=== PATIENT | female | born 1940 | race Caucasian/White ===

== ENCOUNTER → 2020-04-01 | Outpatient (CLI) | payer MEDICARE ==
[2016-06-07 10:30] VITALS: BP 149/72
[~2020-04-01] MED LIST: ACET325T9 PO; ALBU2.5V8 INH; AMIO200T PO; AMIO200T4 PO; ASPI-886 PO; ATOR10TA60 PO; BENZ200C47 PO; BUSP15TA PO; CEPH-264 PO; CIPR500T94 PO; DILT180C64 PO; DOXY100C2 PO; ETOD400T PO; FAMO20TA5 PO; HYDR-2761 PO; HYDR-3164 PO; IOHEXOL 240 MG/ML 50ML VIAL. PO ONE; IOHEXOL 300 MG/ML 100ML VIAL. IV ONE; LABE200T4 PO; LORA10TA3 PO; LORA10TA68 PO; LOSA100T2 PO; LOSA25TA54 PO; METO-239 PO; METO-269 PO; MULT-208 PO; MULT-445 PO; PHEN-444 PO; SIMV10TA15 PO; SIMV20TA18 PO
[2020-04-01 09:21] LABS: BASO # 0.1 x10^3/uL (0.0-0.2); BASO % 1 % (0-3); EOS # 0.3 x10^3/uL (0.0-0.7); EOS % 4 % (0-3); HEMATOCRIT 43.9 % (36.0-47.0); HEMOGLOBIN 14.5 g/dL (12.0-15.5); LYMPH % 27 % (24-48); MEAN CORPUSCULAR HEMOGLOBIN 27 pg (25-35); MEAN CORPUSCULAR HGB CONC 33 g/dL (31-37); MEAN CORPUSCULAR VOLUME 83 fL (79-100); MONO # 0.5 x10^3/uL (0.0-1.1); MONO % 7 % (0-9); NEUT # 4.7 x10^3/uL (1.8-7.7); NEUT % 62 % (31-73); PLATELET COUNT 222 x10^3/uL (140-400); RED CELL DISTRIBUTION WIDTH 14.9 % (11.5-14.5); WHITE BLOOD COUNT 7.5 x10^3/uL (4.0-11.0)
[2020-04-01 09:35] LABS: ALBUMIN 3.8 g/dL (3.4-5.0); ALBUMIN/GLOBULIN RATIO 1.2 (1.0-1.7); CALCIUM 8.6 mg/dL (8.5-10.1); CREATININE 1.2 mg/dL (0.6-1.0); GFR 43.1; POTASSIUM 4.1 mmol/L (3.5-5.1); TOTAL BILIRUBIN 0.7 mg/dL (0.2-1.0)
--- NOTE | 2020-04-01 13:58 | RAD ---
EXAM: CT Chest, Abdomen, and Pelvis with IV contrast INDICATION: Reason: RENAL CA / Spl. Instructions: INJ 60ML OMNI 300 30 ML OMNI 240 PO / History: TECHNIQUE: Multi-detector row CT images were acquired from the thoracic inlet through the ischial tuberosities with the use of IV contrast. Sagittal and coronal images were acquired from the transaxial data. All CT scans performed at this facility utilize dose optimization techniques as appropriate to the exam, including the following: Automated exposure control and adjustment of the mA and/or KV according to patient size (this includes techniques or standardized protocols for targeted exams where dose is indication/reason for exam). IV CONTRAST: Administered ORAL CONTRAST: Administered COMPARISON: Abdomen pelvis CT without IV contrast 05/11/2016. FINDINGS: CHEST: CARDIOVASCULAR: Unremarkable MEDIASTINUM & CASSIDY: No adenopathy or masses. LUNGS: No pulmonary infiltrate, nodule, or other focal abnormality. PLEURAL SPACE: No pleural effusions or pneumothorax. OSSEOUS & SOFT TISSUE: Unremarkable ABDOMEN/PELVIS: LIVER: Scattered hepatic cysts, similar to prior. BILIARY SYSTEM: Gallbladder contains multiple gallstones. Bile ducts are not dilated. PANCREAS: Unremarkable SPLEEN: Unremarkable ADRENALS: Stable nodular fullness of left adrenal gland measuring 1.4 cm, compatible with benign adenomatous change. 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 There are 2 small inferior pole renal cortical cysts measuring 1.3 and 1.6 cm that are better depicted postcontrast but likely unchanged in the interval. These require no specific imaging follow-up based on their appearance alone. Right kidney shows cortical scarring compatible with posttreatment changes from previous right renal malignancy resection. No developing soft tissue mass. No abnormal enhancement to the renal parenchyma suspicious for local recurrence. BLADDER: Unremarkable REPRODUCTIVE ORGANS: Hysterectomy. The right ovary is not well seen and may be surgically absent. The left ovary is unremarkable on CT. GASTROINTESTINAL: The stomach, small bowel, and colon are unremarkable. The appendix is normal. MESENTERY/PERITONEUM/RETROPERITONEUM: Unremarkable VASCULAR: Unremarkable LYMPH NODES: No adenopathy OSSEOUS & SOFT TISSUES: Lumbar spinal degenerative spondylosis with facet hypertrophy and grade 1 anterolisthesis of L4 on L5. No acute or aggressive osseous lesions. IMPRESSION: Postoperative changes in the right kidney with no evidence of local tumor recurrence or metastatic disease. Electronically signed by: Norma Patten MD (04/01/2020 1:55 PM) [id number]
== END | disposition home or self-care (01) ==
LOC: CT 08:52
PROVIDERS: ATTEND Internal Medicine Hematology & Oncology
DX: C64.1 Malignant neoplasm of right kidney, except renal pelvis (principal); N21.0 Calculus in bladder; M46.96 Unspecified inflammatory spondylopathy, lumbar region; E27.49 Other adrenocortical insufficiency; M47.816 Spondylosis without myelopathy or radiculopathy, lumbar region; M43.16 Spondylolisthesis, lumbar region; Z90.710 Acquired absence of both cervix and uterus
CPT/HCPCS: 36415; 71260; 74177; 80053; 85025; Q9966; Q9967

== ENCOUNTER → 2021-03-18 | Outpatient (CLI) | payer MEDICARE ==
[2016-06-07 10:30] VITALS: BP 149/72
[~2021-03-18] MED LIST changes: -AMIO200T4 PO; +AMIO200T6 PO; +CONTRAST GIVEN. MC PRN; -ETOD400T PO; +ETOD400T3 PO
[2021-03-18 11:15] LABS: BASO # 0.1 x10^3/uL (0.0-0.2); BASO % 1 % (0-3); EOS # 0.4 x10^3/uL (0.0-0.7); EOS % 4 % (0-3); HEMATOCRIT 42.7 % (36.0-47.0); HEMOGLOBIN 14.1 g/dL (12.0-15.5); LYMPH # 2.3 x10^3/uL (1.0-4.8); LYMPH % 28 % (24-48); MEAN CORPUSCULAR HEMOGLOBIN 27 pg (25-35); MEAN CORPUSCULAR HGB CONC 33 g/dL (31-37); MEAN CORPUSCULAR VOLUME 82 fL (79-100); MONO # 0.5 x10^3/uL (0.0-1.1); MONO % 6 % (0-9); NEUT # 5.1 x10^3/uL (1.8-7.7); NEUT % 61 % (31-73); PLATELET COUNT 229 x10^3/uL (140-400); RED BLOOD COUNT 5.17 x10^6/uL (3.50-5.40); WHITE BLOOD COUNT 8.3 x10^3/uL (4.0-11.0)
[2021-03-18 11:21] LABS: ALBUMIN 3.7 g/dL (3.4-5.0); ALBUMIN/GLOBULIN RATIO 1.2 (1.0-1.7); CALCIUM 8.9 mg/dL (8.5-10.1); GFR 53.1; TOTAL BILIRUBIN 0.7 mg/dL (0.2-1.0); TOTAL PROTEIN 6.8 g/dL (6.4-8.2)
--- NOTE | 2021-03-18 18:19 | RAD ---
EXAM: CT CHEST, ABDOMEN, AND PELVIS WITH CONTRAST INDICATION: Renal cell carcinoma COMPARISON: CT chest abdomen pelvis 04/01/2020 TECHNIQUE: Helical CT imaging performed of the chest, abdomen and pelvis after administration of 60 m L Omnipaque 300 contrast. Sagittal and coronal reformats were obtained. One or more of the following individualized dose reduction techniques were utilized for this examinat ion: 1. Automated exposure control 2. Adjustment of the mA and/or kV according to patient size 3. Use of iterative reconstruction technique. FINDINGS: CHEST: Thyroid gland and thoracic inlet: Normal. Heart and great vessels: Heart is normal in size. There are coronary artery calcifications. Thoracic aorta is normal in caliber. Mediastinum and ingrid: No mediastinal or hilar lymphadenopathy. Lungs and pleura: There is a 2 mm nodule along the minor fissure, nonspecific but likely a lymph node . No suspicious pulmonary nodule Mild linear scarring or atelectasis in the left lower lobe. The lung s are otherwise clear. No pleural effusion. Chest wall and axillae: No axillary lymphadenopathy. Chest wall is unremarkable. Bones: No acute osseous abnormality ABDOMEN AND PELVIS: Liver: There are a few small scattered subcentimeter hypodensities in the liver, too small characteri ze but unchanged from 05/11/2016 and likely cysts or hemangiomas. Gallbladder/Biliary Tree: Cholelithiasis. Bile ducts are normal. Pancreas: Normal. Spleen: Normal. Adrenal Glands: Unchanged 1.4 cm left adrenal nodule. Kidneys/Ureters/Bladder: There is sequela of partial right nephrectomy. No recurrent mass. Left kidne y is mildly atrophic and lobulated. Partially duplicated left renal collecting system. There are unch anged simple cyst in the mid left kidney measuring 1.3 cm each. No hydronephrosis. Ureters and bladde r are normal. Reproductive Organs: Uterus is not visualized. No adnexal mass. Stomach, small bowel, and colon: Stomach is normal. No small bowel obstruction. Colon is unremarkable . Vasculature: Abdominal aorta is normal in caliber. Mild atherosclerosis. Lymph Nodes: There is no lymphadenopathy. Peritoneum and retroperitoneum: No free fluid or free air. Bones: There is no acute osseous abnormality. 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 IMPRESSION: 1. Surgical changes of the right kidney. No definite evidence of recurrent or metastatic disease. 2. 2 mm nodule along the minor fissure, likely a lymph node. Recommend attention on follow-up. 3. Other unchanged findings as above. Electronically signed by: Sayda Grant MD (03/18/2021 6:17 PM) [id number]
== END ==
LOC: CT 10:42
PROVIDERS: ATTEND Internal Medicine Hematology & Oncology
DX: C64.1 Malignant neoplasm of right kidney, except renal pelvis (principal); N28.1 Cyst of kidney, acquired; Q63.1 Lobulated, fused and horseshoe kidney; N26.1 Atrophy of kidney (terminal); K80.20 Calculus of gallbladder without cholecystitis without obstruction; R91.1 Solitary pulmonary nodule; I25.10 Atherosclerotic heart disease of native coronary artery without angina pectoris; E27.8 Other specified disorders of adrenal gland; M43.16 Spondylolisthesis, lumbar region; M16.0 Bilateral primary osteoarthritis of hip
CPT/HCPCS: 36415; 71260; 74177; 80053; 85025; Q9966; Q9967